=== PATIENT | female | born 1990 | race Two or more races ===

== ENCOUNTER 2025-02-18 05:05 | Day surgery (SDC) | payer OTHER ==
[2025-02-12 08:27] VITALS: BP 111/74
[2025-02-12 08:56] LABS: BASO % 1.2 % (0.1-1.2); EOS # 0.12 (0.04-0.54); HEMATOCRIT 35.7 % (34.1-44.9); HEMOGLOBIN 11.6 g/dL (11.2-15.7); LYMPH # 2.14 (1.18-3.74); LYMPH % 35.4 % (19.3-53.1); MEAN CORPUSCULAR HEMOGLOBIN 28.6 pg (25.6-32.2); MONO # 0.41 (0.24-0.82); MONO % 6.8 % (4.7-12.5); NEUT % 54.4 % (34.0-71.1); PLATELET COUNT 358 K/uL (163-369); RED BLOOD COUNT 4.06 M/uL (3.93-5.22); RED CELL DISTRIBUTION WIDTH 13.6 % (11.6-14.4)
[2025-02-12 09:01] LABS: PH,URINE 5.5 (5.0-8.0); URINE APPEARANCE Clear; URINE BILIRRUBIN Negative (NEGATIVE); URINE BLOOD Small; URINE COLOR Yellow; URINE GLUCOSE Negative (NEGATIVE); URINE KETONE Negative (NEGATIVE); URINE LEUKOCYTE Negative; URINE NITRATE Negative; URINE PROTEIN Negative (NEGATIVE); URINE UROBILINOGEN 0.2 E.U./dl
[2025-02-12 09:05] LABS: URINE EPITHELIAL CELLS 28.4 uL (0.0-38.8); URINE RBC 60.5 uL (0.0-20.8); URINE WBC 5.8 uL (0.0-23.2)
[2025-02-12 09:21] LABS: URINE CAST 0.29 uL (0.0-1.40)
[2025-02-12 09:40] LABS: INR 1.01
[2025-02-12 10:07] LABS: ALBUMIN 3.7 gm/dL (3.4-5.0); BILIRUBIN TOTAL 0.28 mg/dL (0.3-1.2); CALCIUM 9.2 mg/dL (8.5-10.1); CREATININE SERUM 0.65 mg/dL (0.55-1.02); GFR 103.13; GLOBULINA 3.5 G/DL (2.4-3.5); POTASSIUM 4.15 mEq/L (3.5-5.1); TOTAL PROTEIN 7.2 gm/dL (6.4-8.2)
[~2025-02-18] VITALS: Ht 172.7 cm; Wt 65.8 kg
[~2025-02-18 05:05] MED LIST: MELATONIN10 MG PO
[2025-02-18] MEDS ORDERED: CHLORHEXIDINE GLUCONATE 120 ML BOTTLE TOP ONE ×2 (07:10→08:30)
[2025-02-18] MEDS ORDERED: POVIDONE-IODINE 118 ML BOTT TOP ONE ×2 (07:10→08:30)
== END 2025-02-18 12:55 | disposition home or self-care (01) ==
LOC: CIR.AMB 05:05
PROVIDERS: ATTEND Obstetrics & Gynecology
DX: T83.39XA Other mechanical complication of intrauterine contraceptive device, initial encounter (principal); N93.8 Other specified abnormal uterine and vaginal bleeding